=== PATIENT | male | born 1965 | race Caucasian/White ===

== ENCOUNTER → 2016-03-19 | Outpatient (CLI) | payer OTHER ==
--- NOTE | 2016-03-20 16:42 | DX ---
2 view chest - March 19, 2016, at 1539 hours. Indication: Shortness of breath. Comparison: August 28, 2014. FINDINGS: Lungs are clear. Heart size is normal. Bones are unremarkable. Lower cervical fusion is not ed. IMPRESSION: Normal.
== END ==
LOC: CIMAGING 15:32
PROVIDERS: ATTEND Family Medicine
DX: R06.02 Shortness of breath (principal)
CPT/HCPCS: 71020-PO

== ENCOUNTER → 2016-07-30 | Outpatient (CLI) | payer OTHER | LOC: FIMAGING 13:41 | PROVIDERS: ATTEND Family Medicine | DX: R11.0 Nausea (principal); R26.89 Other abnormalities of gait and mobility; R42 Dizziness and giddiness ==